=== PATIENT | female | born 1950 | race Caucasian/White ===

== ENCOUNTER 2024-10-19 08:19 | Inpatient (IN) ==
[2024-10-19 10:33] LABS: ABS Eosinophils 0.1 10^3/uL (0.0-0.5); ABS Lymphocytes 1.4 10^3/uL (1.0-4.8); ABS Monocytes 0.6 10^3/uL (0.0-0.9); ABS Neutrophils 5.9 10^3/uL (1.5-7.6); Eosinophil % 1.8 %; Hemoglobin 13.5 g/dL (11.5-14.3); Lymphocyte % 17.5 %; Mean Corpuscular Hemoglobin 27.8 pg (27-33); Mean Corpuscular Hgb Conc 33.6 g/dL (31-36); Mean Corpuscular Volume 82.8 fL (80-97); Mean Platelet Volume 7.8 fL (7.5-11.2); Platelet Count 354 10^3/uL (150-450); Red Blood Count 4.83 10^6/uL (3.63-4.92); Red Cell Distribution Width 16.5 % (12-17); White Blood Count 8.1 10^3/uL (3.8-11.8)
[2024-10-19 11:17] LABS: Albumin 3.8 g/dL (3.2-5.2); Albumin/Globulin Ratio 1.7 (1-3); Calcium 9.7 mg/dL (8.6-10.3); Creatinine, Serum 0.72 mg/dL (0.51-0.95); Globulin 2.2 g/dL (2-4); Potassium 4.4 mmol/L (3.5-5.0); Total Bilirubin 0.3 mg/dL (0.2-1.0); eGFR CKD-EPI 87.1 (>60)
[2024-10-19 11:40] LABS: Urine Appearance Turbid; Urine Bilirubin Negative (Negative); Urine Blood Negative (Negative); Urine Color Light-Yellow; Urine Glucose Negative (Negative); Urine Ketones Negative (Negative); Urine Nitrite Negative (Negative); Urine Protein Negative (Negative); Urine Specific Gravity 1.008 (1.002-1.030); Urine Urobilinogen Negative (Negative)
[2024-10-21] MEDS ORDERED: ceFAZolin 2 GM PREMIX 2 GM/50 ML BAG ONE (15:46)
[2024-10-21] MEDS ORDERED: Ondansetron 4 mg VIAL 2 MG/ML 2 ml VIAL ONE (15:47)
[2024-10-21] MEDS ORDERED: Rocuronium 50 mg VIAL 10 mg/ml 5 ml VIAL (50 mg) ONE (15:47)
[2024-10-21] MEDS ORDERED: fentaNYL 100 mcg/2 ml 50 MCG/ML VIAL ONE ×2 (15:47→17:32)
[2024-10-21] MEDS ORDERED: Propofol 10 MG/ML 20 ML BTL ONE (15:47)
[2024-10-21] MEDS ORDERED: Dexamethasone IV 4 MG/ML VIAL 1 ml VIAL ONE (15:47)
[2024-10-21] MEDS ORDERED: Lidocaine 2% PF 5 ML VIAL ONE (15:47)
[2024-10-21] MEDS ORDERED: Midazolam 2 mg/2 ml VIAL 1 mg/ml 2 ml VIAL (2 mg) ONE (15:48)
[2024-10-21] MEDS ORDERED: Levalbuterol 0.63MG/3ML NEB UNIT OF USE INH PRN (16:42)
[2024-10-21] MEDS ORDERED: Ondansetron 4 mg VIAL 2 MG/ML 2 ml VIAL IV PRN ×2 (16:42→18:08)
[2024-10-21] MEDS ORDERED: Naloxone 0.4 mg VIAL 0.4 mg/ml 1 ml VIAL IV PRN (16:42)
[2024-10-21] MEDS ORDERED: fentaNYL 100 mcg/2 ml 50 MCG/ML VIAL IV PRN (16:42)
[2024-10-21] MEDS ORDERED: Phenylephrine 40 mcg/mL 10mL (400mcg) SYRINGE ONE (17:12)
[2024-10-21] MEDS ORDERED: Bupivacaine 0.25% SDV 30 ML ONE (17:19)
[2024-10-21] MEDS ORDERED: Magnesium Hydroxide LIQ 30 ML UDC PO PRN (18:08)
[2024-10-21] MEDS ORDERED: Ondansetron ODT 4 mg TAB 4 MG TAB PO PRN (18:08)
[2024-10-21] MEDS ORDERED: Lactulose 30 ml UDC PO PRN (18:08)
[2024-10-21] MEDS: Magnesium Hydroxide LIQ 30 ML UDC PO SCH (21:09)
[2024-10-22] MEDS: Vitamin THERAPEUTIC TAB PO SCH (10:30)
[2024-10-23 14:18] VITALS: BP 137/69
== END 2024-10-24 11:08 | DRG 512 ==
LOC: ED 08:19 → INTOOBSV 13:11 → EDHOLD 13:11 → SUATTDRO 13:11 → MED 14:15
PROVIDERS: ADMIT Student in an Organized Health Care Education/Training Program; ATTEND Internal Medicine